=== PATIENT | male | born 1975 | race Caucasian/White ===

== ENCOUNTER 2016-12-05 13:39 | Inpatient (IN) ==
[2016-12-05 14:04] LABS: Basophils % 0.5 %; Eosinophils # 0.3 K/mcL (0.0-0.6); Eosinophils % 3.3 %; Hematocrit 40.5 % (37.5-50.1); Hemoglobin 13.7 g/dL (12.9-16.9); Immature Granulocytes % 0.4 % (0-4); Immature Platelets 6.6 % (1.1-6.1); Lymphocytes # 1.7 K/mcL (0.6-4.6); Lymphocytes % 21.9 %; Mean Corpuscular HGB Conc 33.8 g/dL (31.6-35.5); Mean Corpuscular Hemoglobin 28.4 pg (28.0-33.3); Mean Corpuscular Volume 83.9 fL (83.0-100.0); Mean Platelet Volume 10.6 fL (9.4-12.4); Monocytes # 0.4 K/mcL (0.0-1.3); Neutrophils # 5.2 K/mcL (1.6-8.9); Platelet Count 203 K/mcL (140-400); Red Blood Count 4.83 M/mcL (4.19-5.50); Red Cell Distribution Width 14.7 % (11.5-14.5); Segmented Neutrophils % 68.9 %
[2016-12-05 14:19] LABS: BUN/Creatinine Ratio 8 (6-26); Blood Urea Nitrogen 9 mg/dL (8-26); Calcium 10.1 mg/dL (8.6-10.8); Carbon Dioxide 25 mEq/L (19-29); Chloride 106 mEq/L (98-109); Glucose 98 mg/dL (70-99); Osmolality,Calculated 285 (280-300); Potassium 3.8 mEq/L (3.5-4.5); Sodium 138 mEq/L (136-145); eGFR For African Americans > 60 (> 60); eGFR For Non-African Americans > 60 (> 60)
[2016-12-05 14:20] LABS: Acetaminophen < 1.0 mcg/mL (10-30); Ethanol < 10 mg/dL (0-10); Salicylate < 5.0 mg/dL (15-30)
[2016-12-05 14:54] LABS: Bilirubin,Urine Negative (Negative); Blood,Urine Negative (Negative); Clarity,Urine Cloudy (Clear); Color,Urine Yellow (Yellow); Glucose,Urine (UA) Normal (Normal); Ketones,Urine Negative (Negative); Leukocyte Esterase,Urine Moderate (Negative); Nitrite,Urine Negative (Negative); PH,Urine 6.5 pH Units (5.0-8.0); Protein,Urine Negative (Neg-Trace); Specific Gravity,Urine 1.011 (1.010-1.025); Urobilinogen,Urine Normal (Normal)
[2016-12-05 14:57] LABS: Bacteria,Urine None Seen per hpf (None-Few); Hyaline Casts,Urine None Seen per lpf (None-Few); RBC,Urine 0-3 per hpf (0-3); Squamous Epithelial Cell,Urine Many per lpf (None-Few); WBC,Urine 15-30 per hpf (0-3)
[2016-12-05 15:01] LABS: Amphetamine Screen,Urine Negative ng/mL (Cutoff=1000); Barbiturate Screen,Urine Negative ng/mL (Cutoff=200); Benzodiazepines Screen,Urine Negative ng/mL (Cutoff=200); Cannabinoid Screen,Urine Negative ng/mL (Cutoff = 50); Cocaine Screen,Urine Negative ng/mL (Cutoff= 300); Opiate Screen,Urine Negative ng/mL (Cutoff=300); Phencyclidine Screen,Urine Negative ng/mL (Cutoff=25)
--- NOTE | 2016-12-05 15:04 | Emergency Department Note ---
Disposition Clinical Impression: Suicidal ideation Disposition: Admitted As Inpatient Condition: Good Referrals: NO,PCP [Primary Care Provider] - Forms: ED Satisfaction Letter Time of Disposition: 15:17 Psych HPI - General Chief Complaint: ED Psychiatric Symptoms Stated Complaint: SI/ Medical clearance. Source: patient, EMS Nursing Notes Reviewed: Yes Vital Signs Reviewed: Yes - History of Present Illness HPI Narrative: 41 year old male with HX of depression and previous suicidial attemptes and thoughts states that he has become increasinlgy more depressed and for the past month has had incresed suicidal thoughts and states that today he thought it was so severe that he may cause harm to himself. Mariana states he has no specific plans. Mariana has no other complaints at this time and states he is compliant with his medications. Mariana is sitting comfortably at bedside and has been admitetd to our facility in the past. - Related Data Home Medications Medication Instructions Recorded Confirmed Benztropine Mesylate 1 mg PO BID 05/22/16 05/22/16 Escitalopram Oxalate 30 mg PO DAILY 05/22/16 05/22/16 Haloperidol [Haldol] 5 mg PO HS 05/22/16 05/22/16 LORazepam [Ativan] 1 mg PO BID 05/22/16 05/22/16 [place] Carbonate 300 mg PO QAM 05/22/16 05/22/16 [place] Carbonate 600 mg PO HS 05/22/16 05/22/16 Melatonin 5 mg Tablet 5 mg PO HS PRN 05/22/16 05/22/16 Temazepam [Restoril] 30 mg PO HS 05/22/16 05/22/16 Previous Rx's Medication Instructions Recorded TraZODone 100 mg PO HS tablet 05/24/16 Allergies Allergy/AdvReac Type Severity Reaction Status Date / Time No Known Allergies Allergy Verified 11/14/16 20:13 Constitutional: Denies: fever, chills, weakness, weight change Eyes: Denies: eye pain, eye discharge, vision change ENT ED: Denies: ear pain, throat pain, dental pain, congestion, dysphagia Cardiovascular: Denies: chest pain, palpitations, dyspnea on exertion, syncope Respiratory: Denies: cough, dyspnea, wheezes, hemoptysis Gastrointestinal: Denies: abdominal pain, nausea, vomiting, diarrhea, constipation, hematemesis, melena, hematochezia Genitourinary: Denies: urgency, dysuria, frequency, hematuria Musculoskeletal: Denies: back pain, neck pain, arthralgia, myalgia Integumentary: Denies: rash, abrasion, lesions Neurological: Denies: headache, weakness, numbness, paresthesias Psychiatric: Reports: suicidal thoughts. Denies: anxiety, depression, homicidal thoughts, auditory hallucinations, visual hallucinations Past Medical History - Past Medical History Medical history: Reports: no medical history, other Surgical history: Reports: other Psychiatric history: Reports: anxiety, bipolar, depression, prior suicide attempt - Social History Smoking Status: Former smoker Smokeless Tobacco Status: No Alcohol use: Reports: none Drug use: Reports: none Physical Exam - General Limitations: no limitations General appearance: alert, in no apparent distress - Head Head exam: atraumatic, normocephalic, normal inspection - Eye Eye exam: Present: normal appearance, PERRL, EOMI - Expanded Eye Exam Pupils: Left: reactive - ENT ENT exam: normal exam, normal oropharynx, mucous membranes moist - Expanded ENT Exam External ear exam: Present: normal external inspection Mouth exam: Present: normal external inspection Teeth exam: Present: normal inspection Throat exam: Present: normal inspection - Neck Neck exam: Present: normal inspection, full ROM, trachea midline - Chest Chest inspection: Present: normal inspection, symmetric chest wall rise - Respiratory Respiratory exam: Present: normal lung sounds bilaterally - Cardiovascular Cardiovascular exam: Present: regular rate, normal rhythm, normal heart sounds - Abdominal Exam Abdominal exam: Present: soft, Non-Tender. Absent: tenderness, distention, guarding, rebound, rigidity - Extremities Exam Extremities exam: Present: normal inspection, full ROM. Absent: tenderness, pedal edema - Expanded Upper Extremity Exam Shoulder exam: Present: normal inspection, full ROM Arm exam: Present: normal inspection, full ROM Elbow exam: Present: normal inspection, full ROM Forearm/Wrist exam: Present: normal inspection, full ROM Hand exam: Present: normal inspection, full ROM Vascular exam: Normal: capillary refill, radial pulse - Expanded Lower Extremity Exam Hip/Pelvis exam: Present: normal inspection, full ROM Upper leg exam: Present: normal inspection, full ROM Knee exam: Present: normal inspection, full ROM Lower leg exam: Present: normal inspection, full ROM Ankle exam: Present: normal inspection, full ROM Foot/toe exam: Present: normal inspection, full ROM Neurovascular/Tendon exam: Absent: motor deficit, sensory deficit, tendon deficit - Back Exam Back exam: Present: normal inspection, full ROM. Absent: tenderness - Neurological Exam Neurological exam: Present: alert, oriented X3 - Expanded Neurological Exam Patient oriented to: Present: person, place, time Speech: Present: fluid speech Cranial nerves: EOM function (II, III, IV, ): Normal, facial sensation (V): Normal, facial palsy (VII): Normal, gag reflex (IX): Normal, tongue deviation ( XII): Normal Cerebellar function: finger to nose: Normal Cerebellar function: normal gait Motor strength - LUE: 4/5 Motor strength - RUE: 4/5 Motor strength - LLE: 4/5 Motor strength - RLE: 4/5 Coma Scale Eye Opening: Spontaneous Coma Scale Motor Response: Obeys Commands Coma Scale Verbal Response: Oriented Coma Scale Total: 15 - Psychiatric Psychiatric exam: Present: depressed, flat affect, suicidal ideation - Skin Skin exam: Present: warm, dry, intact, normal color Course Course Narrative: we will do a medical clearance and then consult 1A and follow reccomendations per pyschiatry. - Reevaluation(s) Reevaluation #1: patient is medically cleared. 1A consulted. Time: 15:05 Reevaluation #2: 1A accepts patinet for admission. Time: 15:16 Vital Signs Temperature 98.5 F 12/05/16 13:41 Pulse Rate 85 12/05/16 13:41 Respiratory Rate 16 12/05/16 13:41 Blood Pressure 131/88 12/05/16 13:41 O2 Sat by Pulse Oximetry 97 12/05/16 13:41 Temperature 98.5 F 12/05/16 13:41 Pulse Rate 62 12/05/16 14:27 Respiratory Rate 16 12/05/16 13:41 Blood Pressure 131/75 12/05/16 14:27 O2 Sat by Pulse Oximetry 99 12/05/16 14:27 Oxygen Delivery Oxygen Delivery Room Air Psych - Lab Data Result diagrams: 12/05/16 13:52 12/05/16 13:52 Lab Results 12/05/16 12/05/16 12/05/16 Range/Units 13:52 13:52 14:30 WBC 7.5 (4.3-11.1) K/mcL RBC 4.83 (4.19-5.50) M/mcL Hgb 13.7 (12.9-16.9) g/dL Hct 40.5 (37.5-50.1) % MCV 83.9 (83.0-100.0) fL MCH 28.4 (28.0-33.3) pg MCHC 33.8 (31.6-35.5) g/dL RDW 14.7 H (11.5-14.5) % Plt Count 203 (140-400) K/mcL MPV 10.6 (9.4-12.4) fL Immature Gran % 0.4 (0-4) % Seg Neutrophils % 68.9 % Lymphocytes % 21.9 % Monocytes % 5.0 % Eosinophils % 3.3 % Basophils % 0.5 % Neutrophils # 5.2 (1.6-8.9) K/mcL Lymphocytes # 1.7 (0.6-4.6) K/mcL Monocytes # 0.4 (0.0-1.3) K/mcL Eosinophils # 0.3 (0.0-0.6) K/mcL Basophils # 0.0 (0.0-0.2) K/mcL Immature Plt Fraction 6.6 H (1.1-6.1) % Sodium 138 (136-145) mEq/L Potassium 3.8 (3.5-4.5) mEq/L Chloride 106 (98-109) mEq/L Carbon Dioxide 25 (19-29) mEq/L BUN 9 (8-26) mg/dL Creatinine 1.14 (0.72-1.25) mg/dL Est GFR ( Amer) > 60 (> 60) Est GFR (Non-Af Amer) > 60 (> 60) BUN/Creatinine Ratio 8 (6-26) Glucose 98 (70-99) mg/dL Calculated Osmolality 285 (280-300) Calcium 10.1 (8.6-10.8) mg/dL Urine Color Yellow (Yellow) Urine Clarity Cloudy A (Clear) Urine pH 6.5 (5.0-8.0) pH Units Ur Specific [place] 1.011 (1.010-1.025) Urine Protein Negative (Neg-Trace) mg/dL Urine Glucose (UA) Normal (Normal) mg/dL Urine Ketones Negative (Negative) mg/dL Urine Blood Negative (Negative) Urine Nitrite Negative (Negative) Urine Bilirubin Negative (Negative) Urine Urobilinogen Normal (Normal) mg/dL Ur Leukocyte Esterase Moderate H (Negative) Urine Microscopic RBC 0-3 (0-3) per hpf Urine Microscopic WBC 15-30 H (0-3) per hpf Ur Squamous Epith Cells Many H (None-Few) per lpf Urine Bacteria None Seen (None-Few) per hpf Hyaline Casts None Seen (None-Few) per lpf Salicylates < 5.0 L (15-30) mg/dL Urine Opiates Screen (Tjhbsf=306) ng/mL Acetaminophen < 1.0 L (10-30) mcg/mL Ur Barbiturates Screen (Pnxvmh=986) ng/mL Ur Phencyclidine Scrn (Cutoff=25) ng/mL Ur Amphetamines Screen (Jnftxt=6823) ng/mL U Benzodiazepines Scrn (Gqobny=485) ng/mL Urine Cocaine Screen (Cutoff= 300) ng/mL U Marijuana (THC) Screen (Cutoff = 50) ng/mL Ethyl Alcohol < 10 (0-10) mg/dL 12/05/16 Range/Units 14:30 WBC (4.3-11.1) K/mcL RBC (4.19-5.50) M/mcL Hgb (12.9-16.9) g/dL Hct (37.5-50.1) % MCV (83.0-100.0) fL MCH (28.0-33.3) pg MCHC (31.6-35.5) g/dL RDW (11.5-14.5) % Plt Count (140-400) K/mcL MPV (9.4-12.4) fL Immature Gran % (0-4) % Seg Neutrophils % % Lymphocytes % % Monocytes % % Eosinophils % % Basophils % % Neutrophils # (1.6-8.9) K/mcL Lymphocytes # (0.6-4.6) K/mcL Monocytes # (0.0-1.3) K/mcL Eosinophils # (0.0-0.6) K/mcL Basophils # (0.0-0.2) K/mcL Immature Plt Fraction (1.1-6.1) % Sodium (136-145) mEq/L Potassium (3.5-4.5) mEq/L Chloride (98-109) mEq/L Carbon Dioxide (19-29) mEq/L BUN (8-26) mg/dL Creatinine (0.72-1.25) mg/dL Est GFR ( Amer) (> 60) Est GFR (Non-Af Amer) (> 60) BUN/Creatinine Ratio (6-26) Glucose (70-99) mg/dL Calculated Osmolality (280-300) Calcium (8.6-10.8) mg/dL Urine Color (Yellow) Urine Clarity (Clear) Urine pH (5.0-8.0) pH Units Ur Specific [place] (1.010-1.025) Urine Protein (Neg-Trace) mg/dL Urine Glucose (UA) (Normal) mg/dL Urine Ketones (Negative) mg/dL Urine Blood (Negative) Urine Nitrite (Negative) Urine Bilirubin (Negative) Urine Urobilinogen (Normal) mg/dL Ur Leukocyte Esterase (Negative) Urine Microscopic RBC (0-3) per hpf Urine Microscopic WBC (0-3) per hpf Ur Squamous Epith Cells (None-Few) per lpf Urine Bacteria (None-Few) per hpf Hyaline Casts (None-Few) per lpf Salicylates (15-30) mg/dL Urine Opiates Screen Negative (Qflbzy=054) ng/mL Acetaminophen (10-30) mcg/mL Ur Barbiturates Screen Negative (Joaizm=182) ng/mL Ur Phencyclidine Scrn Negative (Cutoff=25) ng/mL Ur Amphetamines Screen Negative (Wwsiha=8632) ng/mL U Benzodiazepines Scrn Negative (Xntytm=326) ng/mL Urine Cocaine Screen Negative (Cutoff= 300) ng/mL U Marijuana (THC) Screen Negative (Cutoff = 50) ng/mL Ethyl Alcohol (0-10) mg/dL Psychiatric Medical Clearance - Medical Clearance Checklist Medical History: No Social History Section defined Current Vitals: Last Vital Signs Temp 98.5 F 12/05/16 13:41 Pulse 62 12/05/16 14:27 Resp 16 12/05/16 13:41 BP 131/75 12/05/16 14:27 Pulse Ox 99 12/05/16 14:27 Psychiatric Lab Panel: Drug Levels and Toxicity 12/05/16 12/05/16 13:52 14:30 Urine Opiates Screen Negative Acetaminophen < 1.0 L Ur Barbiturates Screen Negative Ur Phencyclidine Scrn Negative Ur Amphetamines Screen Negative U Benzodiazepines Scrn Negative Urine Cocaine Screen Negative U Marijuana (THC) Screen Negative Ethyl Alcohol < 10 Abnormal Labs: Abnormal lab results RDW 14.7 % (11.5-14.5) H 12/05/16 13:52 Immature Plt Fraction 6.6 % (1.1-6.1) H 12/05/16 13:52 Urine Clarity Cloudy (Clear) A 12/05/16 14:30 Ur Leukocyte Esterase Moderate (Negative) H 12/05/16 14:30 Urine Microscopic WBC 15-30 per hpf (0-3) H 12/05/16 14:30 Ur Squamous Epith Cells Many per lpf (None-Few) H 12/05/16 14:30 Salicylates < 5.0 mg/dL (15-30) L 12/05/16 13:52 Acetaminophen < 1.0 mcg/mL (10-30) L 12/05/16 13:52 Statement of Medical Clearance: I have evaluated the patient, reviewed diagnostic information, and certify that the patient's medical condition is sufficiently stable that transfer to the psychiatric unit does not pose a significant risk of deterioration.
--- NOTE | 2016-12-05 15:08 | Emergency Department Note ---
Disposition Clinical Impression: Suicidal ideation Disposition: Admitted As Inpatient Condition: Good General Adult HPI - General Chief complaint: ED Psychiatric Symptoms Stated complaint: SI/ Medical clearance. Source: patient, EMS Limitations: no limitations - History of Present Illness Pain Scale: 0 - Related Data Home Medications Medication Instructions Recorded Confirmed Benztropine Mesylate 1 mg PO BID 05/22/16 12/05/16 Haloperidol [Haldol] 5 mg PO HS 05/22/16 05/22/16 LORazepam [Ativan] 1 mg PO BID 05/22/16 12/05/16 [place] Carbonate 300 mg PO QAM #0 05/22/16 12/05/16 [place] Carbonate 600 mg PO HS #0 05/22/16 12/05/16 Temazepam [Restoril] 30 mg PO HS 05/22/16 12/05/16 Allopurinol [Zyloprim] 300 mg PO DAILY 12/05/16 12/05/16 Quetiapine Fumarate [Seroquel] 400 mg PO HS 12/05/16 12/05/16 Rizatriptan Benzoate [[employer]] 10 mg PO AD PRN MDD 20 mg 12/05/16 12/05/16 Trazodone HCl 200 mg PO HS 12/05/16 12/05/16 Allergies Allergy/AdvReac Type Severity Reaction Status Date / Time No Known Allergies Allergy Verified 11/14/16 20:13 Past Medical History - Past Medical History Medical history: Reports: no medical history, other Surgical history: Reports: other Psychiatric history: Reports: anxiety, bipolar, depression, prior suicide attempt - Social History Smoking Status: Former smoker Smokeless Tobacco Status: No Alcohol use: Reports: none Drug use: Reports: none Physical Exam - General Limitations: no limitations General appearance: alert, in no apparent distress Course - Reevaluation(s) Reevaluation #1: I saw the patient with the resident, Dr. Burton. Patient presents with depression and suicidal ideations. He is calm and cooperative here in the department. He has no medical complaints. My examination is unremarkable. Labs and urine are already back and they are fine. He is medically cleared. We await psychiatry to evaluate the patient. Disposition will be based on psychiatry recommendations and reevaluation of the patient. Time: 15:08 Vital Signs Temperature 98.5 F 12/05/16 13:41 Pulse Rate 85 12/05/16 13:41 Respiratory Rate 16 12/05/16 13:41 Blood Pressure 131/88 12/05/16 13:41 O2 Sat by Pulse Oximetry 97 12/05/16 13:41 Temperature 98.5 F 12/05/16 13:41 Pulse Rate 62 12/05/16 14:27 Respiratory Rate 0 12/05/16 15:38 Blood Pressure 0/0 12/05/16 15:38 O2 Sat by Pulse Oximetry 99 12/05/16 14:27 Oxygen Delivery Oxygen Delivery Room Air Medical Decision Making - Lab Data Result diagrams: 12/05/16 13:52 12/05/16 13:52 Lab Results 12/05/16 12/05/16 12/05/16 Range/Units 13:52 13:52 14:30 WBC 7.5 (4.3-11.1) K/mcL RBC 4.83 (4.19-5.50) M/mcL Hgb 13.7 (12.9-16.9) g/dL Hct 40.5 (37.5-50.1) % MCV 83.9 (83.0-100.0) fL MCH 28.4 (28.0-33.3) pg MCHC 33.8 (31.6-35.5) g/dL RDW 14.7 H (11.5-14.5) % Plt Count 203 (140-400) K/mcL MPV 10.6 (9.4-12.4) fL Immature Gran % 0.4 (0-4) % Seg Neutrophils % 68.9 % Lymphocytes % 21.9 % Monocytes % 5.0 % Eosinophils % 3.3 % Basophils % 0.5 % Neutrophils # 5.2 (1.6-8.9) K/mcL Lymphocytes # 1.7 (0.6-4.6) K/mcL Monocytes # 0.4 (0.0-1.3) K/mcL Eosinophils # 0.3 (0.0-0.6) K/mcL Basophils # 0.0 (0.0-0.2) K/mcL Immature Plt Fraction 6.6 H (1.1-6.1) % Sodium 138 (136-145) mEq/L Potassium 3.8 (3.5-4.5) mEq/L Chloride 106 (98-109) mEq/L Carbon Dioxide 25 (19-29) mEq/L BUN 9 (8-26) mg/dL Creatinine 1.14 (0.72-1.25) mg/dL Est GFR ( Amer) > 60 (> 60) Est GFR (Non-Af Amer) > 60 (> 60) BUN/Creatinine Ratio 8 (6-26) Glucose 98 (70-99) mg/dL Calculated Osmolality 285 (280-300) Calcium 10.1 (8.6-10.8) mg/dL Urine Color Yellow (Yellow) Urine Clarity Cloudy A (Clear) Urine pH 6.5 (5.0-8.0) pH Units Ur Specific [place] 1.011 (1.010-1.025) Urine Protein Negative (Neg-Trace) mg/dL Urine Glucose (UA) Normal (Normal) mg/dL Urine Ketones Negative (Negative) mg/dL Urine Blood Negative (Negative) Urine Nitrite Negative (Negative) Urine Bilirubin Negative (Negative) Urine Urobilinogen Normal (Normal) mg/dL Ur Leukocyte Esterase Moderate H (Negative) Urine Microscopic RBC 0-3 (0-3) per hpf Urine Microscopic WBC 15-30 H (0-3) per hpf Ur Squamous Epith Cells Many H (None-Few) per lpf Urine Bacteria None Seen (None-Few) per hpf Hyaline Casts None Seen (None-Few) per lpf Salicylates < 5.0 L (15-30) mg/dL Urine Opiates Screen (Goyesn=242) ng/mL Acetaminophen < 1.0 L (10-30) mcg/mL Ur Barbiturates Screen (Xfvfpp=887) ng/mL Ur Phencyclidine Scrn (Cutoff=25) ng/mL Ur Amphetamines Screen (Iderxp=1356) ng/mL U Benzodiazepines Scrn (Wakepk=596) ng/mL Urine Cocaine Screen (Cutoff= 300) ng/mL U Marijuana (THC) Screen (Cutoff = 50) ng/mL Ethyl Alcohol < 10 (0-10) mg/dL 12/05/16 Range/Units 14:30 WBC (4.3-11.1) K/mcL RBC (4.19-5.50) M/mcL Hgb (12.9-16.9) g/dL Hct (37.5-50.1) % MCV (83.0-100.0) fL MCH (28.0-33.3) pg MCHC (31.6-35.5) g/dL RDW (11.5-14.5) % Plt Count (140-400) K/mcL MPV (9.4-12.4) fL Immature Gran % (0-4) % Seg Neutrophils % % Lymphocytes % % Monocytes % % Eosinophils % % Basophils % % Neutrophils # (1.6-8.9) K/mcL Lymphocytes # (0.6-4.6) K/mcL Monocytes # (0.0-1.3) K/mcL Eosinophils # (0.0-0.6) K/mcL Basophils # (0.0-0.2) K/mcL Immature Plt Fraction (1.1-6.1) % Sodium (136-145) mEq/L Potassium (3.5-4.5) mEq/L Chloride (98-109) mEq/L Carbon Dioxide (19-29) mEq/L BUN (8-26) mg/dL Creatinine (0.72-1.25) mg/dL Est GFR ( Amer) (> 60) Est GFR (Non-Af Amer) (> 60) BUN/Creatinine Ratio (6-26) Glucose (70-99) mg/dL Calculated Osmolality (280-300) Calcium (8.6-10.8) mg/dL Urine Color (Yellow) Urine Clarity (Clear) Urine pH (5.0-8.0) pH Units Ur Specific [place] (1.010-1.025) Urine Protein (Neg-Trace) mg/dL Urine Glucose (UA) (Normal) mg/dL Urine Ketones (Negative) mg/dL Urine Blood (Negative) Urine Nitrite (Negative) Urine Bilirubin (Negative) Urine Urobilinogen (Normal) mg/dL Ur Leukocyte Esterase (Negative) Urine Microscopic RBC (0-3) per hpf Urine Microscopic WBC (0-3) per hpf Ur Squamous Epith Cells (None-Few) per lpf Urine Bacteria (None-Few) per hpf Hyaline Casts (None-Few) per lpf Salicylates (15-30) mg/dL Urine Opiates Screen Negative (Ewcrsz=391) ng/mL Acetaminophen (10-30) mcg/mL Ur Barbiturates Screen Negative (Aefyla=390) ng/mL Ur Phencyclidine Scrn Negative (Cutoff=25) ng/mL Ur Amphetamines Screen Negative (Xnogre=8874) ng/mL U Benzodiazepines Scrn Negative (Bwbqwz=520) ng/mL Urine Cocaine Screen Negative (Cutoff= 300) ng/mL U Marijuana (THC) Screen Negative (Cutoff = 50) ng/mL Ethyl Alcohol (0-10) mg/dL Attestation Statement - Attestation Attestation: I, Dr. Vanegas, examined this patient [id number] and my medical decision- making was reviewed with Dr. Burton, Resident Physician. I agree with the documented findings, disposition and treatment plan as described except to the extent set forth below. Please see my progress notes for details.
[2016-12-05] MEDS ORDERED: hydrOXYzine pamoate 25 MG CAPSULE PO PRN (15:57)
[2016-12-05] MEDS ORDERED: *HR* LORazepam 1 MG TABLET PO PRN (15:57)
[2016-12-05] MEDS ORDERED: *HR* LORazepam 2 MG/ML VIAL IM PRN (15:57)
[2016-12-05] MEDS ORDERED: MOM Conc 10 ML UD.LIQ PO PRN (15:57)
[2016-12-05] MEDS ORDERED: Acetaminophen 325 MG TABLET PO PRN (15:57)
[2016-12-05] MEDS ORDERED: Mag Hydrox/Al Hydrox/Simeth 30 ML UDC PO PRN (15:57)
[2016-12-05] MEDS ORDERED: Haloperidol Lactate 5 MG/ML VIAL IM PRN (15:57)
[2016-12-05] MEDS: Lithium Carbonate 300 MG CAPSULE PO SCH (21:15)
[2016-12-05] MEDS: *HR* LORazepam 1 MG TABLET PO SCH (21:15)
[2016-12-05] MEDS: traZODone 50 MG TABLET PO SCH (21:16)
[2016-12-05] MEDS: traZODone 50 MG TABLET PO PRN (23:25)
[2016-12-06] MEDS: Lithium Carbonate 300 MG CAPSULE PO SCH ×2 (09:09→21:51)
[2016-12-06] MEDS: *HR* LORazepam 1 MG TABLET PO SCH ×2 (09:10→21:48)
--- NOTE | 2016-12-06 10:21 | Psychiatry History & Physical ---
Date of Encounter: 12/06/16 Time of Encounter: 10:17 History of Present Illness Patient Stated Chief Complaint: Suicidal ideation Medicare Admission Attestation: For traditional Medicare patients the provided hospital inpatient services are reasonable and necessary and in the case of services not specified as inpatient -only under 42 CFR 419.22 (n), that they are appropriately provided as inpatient services in accordance 42 CFR 412.3. For [facility] the patient may reasonably be expected to be discharged or transferred to a hospital within 96 hours after admission to the Critical [facility]. Admitted From: Emergency Dept History of Present Illness: Mr. Larsen is a 41 year old male referred for admission from Dr. Persaud's office to evaluate depression and suicidal ideation. Patient was seen by his counselor and expressed depression and hopelessness and suicidal ideation in the therapist recommended to Dr. Persaud to admit the patient. Patient has a history of bipolar disorder and an anxiety and has been treated with multiple psychiatric medication as per records he confirmed that he was taking his medication and has not missed any. Patient was stressed out by multiple factors including unemployment and financial issues and impending divorce and his has been insisting on getting a divorce. Patient has been unemployed for several years due to his mental illness and he denies any use of drugs or alcohol he denies smoking and he uses some caffeine. Past Med Surg Social Fam HX - Past Medical History Medical history: no medical history, other - Past Psychiatric History Psychiatric history: Reports: anxiety, bipolar, prior suicide attempt, previous psychiatric hospitalization Past psychiatric history details: Most recent hospitalization was in May 2016 for suicidal ideation - Past Surgical History Surgical History: other - Social History Smoking Status: Former smoker Smokeless Tobacco Status: No Alcohol use: none Drug use: none Medications & Allergies Benztropine Mesylate 1 mg PO BID 05/22/16 [History] Haloperidol [Haldol] 5 mg PO HS 05/22/16 [History] LORazepam [Ativan] 1 mg PO BID 05/22/16 [History] [place] Carbonate 300 mg PO QAM #0 05/22/16 [History] [place] Carbonate 600 mg PO HS #0 05/22/16 [History] Temazepam [Restoril] 30 mg PO HS 05/22/16 [History] Allopurinol [Zyloprim] 300 mg PO DAILY 12/05/16 [History] Quetiapine Fumarate [Seroquel] 400 mg PO HS 12/05/16 [History] Rizatriptan Benzoate [Maxalt Manager Business Information] 10 mg PO AD PRN MDD 20 mg 12/05/16 [History] Trazodone HCl 200 mg PO HS 12/05/16 [History] Allergies No Known Allergies Allergy (Verified 11/14/16 20:13) Review of Systems Psychiatric: Reports: depression, anxiety, suicidal ideation, hopelessness Mental Status Exam Patient orientation: Yes Person, Yes Time, Yes Place Level of alertness: Alert Patient appearance: Appropriate, Unkempt, Disheveled, Obese Behavior: calm, cooperative, guarded Psychomotor activity: Slowed Eye contact: Minimal Contact Mood description: Depressed, Anxious, Labile Affect description: congruent with mood, blunted, flat Speech pattern: Normal rate, Normal rhythm, Normal tone, Limited, Impoverished Speech volume: Normal Thought process: Linear, Goal Oriented Thought content: Yes Suicidal ideation, No Homicidal ideation, No Overt delusions Perceptual disturbances: No Auditory hallucinations, No Visual hallucinations Attention span: Capable of Focused Attention Memory description: Grossly Intact Patient reliability: Questionable Historian Intelligence estimate: Average Judgment: Limited Insight: Partial Results - Vital Signs Vital signs: Temp Pulse Resp BP Pulse Ox 98.2 F 84 16 121/83 99 12/05/16 21:00 12/05/16 21:00 12/05/16 21:00 12/05/16 21:00 12/05/16 14:27 - Labs Labs: Laboratory Last Values WBC 7.5 K/mcL (4.3-11.1) 12/05/16 13:52 RBC 4.83 M/mcL (4.19-5.50) 12/05/16 13:52 Hgb 13.7 g/dL (12.9-16.9) 12/05/16 13:52 Hct 40.5 % (37.5-50.1) 12/05/16 13:52 MCV 83.9 fL (83.0-100.0) 12/05/16 13:52 MCH 28.4 pg (28.0-33.3) 12/05/16 13:52 MCHC 33.8 g/dL (31.6-35.5) 12/05/16 13:52 RDW 14.7 % (11.5-14.5) H 12/05/16 13:52 Plt Count 203 K/mcL (140-400) 12/05/16 13:52 MPV 10.6 fL (9.4-12.4) 12/05/16 13:52 Immature Gran % 0.4 % (0-4) 12/05/16 13:52 Seg Neutrophils % 68.9 % 12/05/16 13:52 Lymphocytes % 21.9 % 12/05/16 13:52 Monocytes % 5.0 % 12/05/16 13:52 Eosinophils % 3.3 % 12/05/16 13:52 Basophils % 0.5 % 12/05/16 13:52 Neutrophils # 5.2 K/mcL (1.6-8.9) 12/05/16 13:52 Lymphocytes # 1.7 K/mcL (0.6-4.6) 12/05/16 13:52 Monocytes # 0.4 K/mcL (0.0-1.3) 12/05/16 13:52 Eosinophils # 0.3 K/mcL (0.0-0.6) 12/05/16 13:52 Basophils # 0.0 K/mcL (0.0-0.2) 12/05/16 13:52 Immature Plt Fraction 6.6 % (1.1-6.1) H 12/05/16 13:52 Sodium 138 mEq/L (136-145) 12/05/16 13:52 Potassium 3.8 mEq/L (3.5-4.5) 12/05/16 13:52 Chloride 106 mEq/L (98-109) 12/05/16 13:52 Carbon Dioxide 25 mEq/L (19-29) 12/05/16 13:52 BUN 9 mg/dL (8-26) 12/05/16 13:52 Creatinine 1.14 mg/dL (0.72-1.25) 12/05/16 13:52 Est GFR ( Amer) > 60 (> 60) 12/05/16 13:52 Est GFR (Non-Af Amer) > 60 (> 60) 12/05/16 13:52 BUN/Creatinine Ratio 8 (6-26) 12/05/16 13:52 Glucose 98 mg/dL (70-99) 12/05/16 13:52 Calculated Osmolality 285 (280-300) 12/05/16 13:52 Calcium 10.1 mg/dL (8.6-10.8) 12/05/16 13:52 Urine Color Yellow (Yellow) 12/05/16 14:30 Urine Clarity Cloudy (Clear) A 12/05/16 14:30 Urine pH 6.5 pH Units (5.0-8.0) 12/05/16 14:30 Ur Specific [place] 1.011 (1.010-1.025) 12/05/16 14:30 Urine Protein Negative mg/dL (Neg-Trace) 12/05/16 14:30 Urine Glucose (UA) Normal mg/dL (Normal) 12/05/16 14:30 Urine Ketones Negative mg/dL (Negative) 12/05/16 14:30 Urine Blood Negative (Negative) 12/05/16 14:30 Urine Nitrite Negative (Negative) 12/05/16 14:30 Urine Bilirubin Negative (Negative) 12/05/16 14:30 Urine Urobilinogen Normal mg/dL (Normal) 12/05/16 14:30 Ur Leukocyte Esterase Moderate (Negative) H 12/05/16 14:30 Urine Microscopic RBC 0-3 per hpf (0-3) 12/05/16 14:30 Urine Microscopic WBC 15-30 per hpf (0-3) H 12/05/16 14:30 Ur Squamous Epith Cells Many per lpf (None-Few) H 12/05/16 14:30 Urine Bacteria None Seen per hpf (None-Few) 12/05/16 14:30 Hyaline Casts None Seen per lpf (None-Few) 12/05/16 14:30 Salicylates < 5.0 mg/dL (15-30) L 12/05/16 13:52 Urine Opiates Screen Negative ng/mL (Oiqhfb=370) 12/05/16 14:30 Acetaminophen < 1.0 mcg/mL (10-30) L 12/05/16 13:52 Ur Barbiturates Screen Negative ng/mL (Giunpz=282) 12/05/16 14:30 Ur Phencyclidine Scrn Negative ng/mL (Cutoff=25) 12/05/16 14:30 Ur Amphetamines Screen Negative ng/mL (Ekpykv=3304) 12/05/16 14:30 U Benzodiazepines Scrn Negative ng/mL (Esvwha=752) 12/05/16 14:30 Urine Cocaine Screen Negative ng/mL (Cutoff= 300) 12/05/16 14:30 U Marijuana (THC) Screen Negative ng/mL (Cutoff = 50) 12/05/16 14:30 Ethyl Alcohol < 10 mg/dL (0-10) 12/05/16 13:52 Assessment and Plan (1) Bipolar disorder Current visit: Yes Status: Acute Plan: Admit inpatient for safety and stabilization, Close observation, Suicide Precautions per unit protocol, Encourage participation in unit milieu, Group Therapy, Monitor sleep, Monitor appetite Additional Plan: Will check lithium level and restart medication. Patient will be monitored. Risks, benefits, side effects, alternatives discussed w/pt: Yes Patient agreeable to treatment: Yes Qualifiers: Active/Remission status: currently active Current bipolar episode type: depressed Current episode severity: moderate Qualified Code(s): F31.32 - Bipolar disorder, current episode depressed, moderate
[2016-12-06] MEDS: traZODone 50 MG TABLET PO SCH (21:49)
[2016-12-06] MEDS: traZODone 50 MG TABLET PO PRN (23:46)
[2016-12-07] MEDS: *HR* LORazepam 1 MG TABLET PO SCH ×2 (08:42→20:46)
[2016-12-07] MEDS: Lithium Carbonate 300 MG CAPSULE PO SCH ×2 (08:43→20:46)
--- NOTE | 2016-12-07 13:52 | Psychiatry Progress Note ---
Date of Encounter: 12/07/16 Time of Encounter: 13:30 Subjective Interval history: Patient is seen for follow-up. Self-reports he is motivated to work on his life situation with his . He attends activities and compliant with medication. He reports improved sleep and denies suicidal ideation. His discharge plan are still pending and mental health social worker is trying to contact family and get information. I discussed with patient at length the need to have time management and activities to occupy his time I explained to him that this is important for his mental health's as well. He seemed to be receptive to those concepts. Review of Systems Psychiatric: Reports: depression, anxiety, suicidal ideation, hopelessness Objective: Exam Patient orientation: Yes Person, Yes Time, Yes Place Level of alertness: Alert Patient appearance: Appropriate, Disheveled, Obese Behavior: calm, cooperative, other ( passive) Psychomotor activity: Normal Eye contact: Maintains Eye Contact Mood description: Depressed Affect description: congruent with mood, flat Speech pattern: Normal rate, Normal rhythm, Normal tone Speech volume: Normal Thought process: Linear, Goal Oriented Thought content: No Suicidal ideation, No Homicidal ideation, No Overt delusions Perceptual disturbances: No Auditory hallucinations, No Visual hallucinations Judgment: Fair Insight: Partial Results - Vital Signs Vital Signs: Temp Pulse Resp BP Pulse Ox 97.8 F 94 16 119/77 99 12/07/16 08:27 12/07/16 08:27 12/07/16 08:27 12/07/16 08:27 12/05/16 14:27 Assessment and Plan (1) Bipolar disorder Current visit: Yes Status: Acute Plan: Continue hospitalization, Close observation, Suicide Precautions per unit protocol, Encourage participation in unit milieu, Group Therapy, Monitor sleep, Monitor appetite Risks, benefits, side effects, alternatives discussed w/pt: Yes Patient agreeable to treatment: Yes Qualifiers: Active/Remission status: currently active Current bipolar episode type: depressed Current episode severity: moderate Qualified Code(s): F31.32 - Bipolar disorder, current episode depressed, moderate Consult Discharge Plan - Plan Referrals: [facility] [Outside] - 12/12/16 3:00 pm (The above appointment is with Debo Bowen. You will also see Dr. Dawn on 01/11/2017 at 10:20am.)
[2016-12-07] MEDS: Acetaminophen/Aspirin/Caffeine TABLET PO PRN (18:08)
[2016-12-07] MEDS: traZODone 50 MG TABLET PO SCH (20:47)
[2016-12-08] MEDS: traZODone 50 MG TABLET PO PRN ×2 (01:50→22:25)
[2016-12-08] MEDS: *HR* LORazepam 1 MG TABLET PO SCH ×2 (09:41→20:40)
[2016-12-08] MEDS: Lithium Carbonate 300 MG CAPSULE PO SCH ×2 (09:41→20:40)
--- NOTE | 2016-12-08 16:47 | Psychiatry Progress Note ---
Date of Encounter: 12/08/16 Time of Encounter: 16:00 Subjective Interval history: Patient is here for follow-up. He denies any suicidal or homicidal ideation. He continues to be passive regarding his discharge plans and future plans. He participates in some groups and not motivated to do any activities. Review of Systems Psychiatric: Reports: depression, anxiety, suicidal ideation, hopelessness Objective: Exam Patient orientation: Yes Person, Yes Time, Yes Place Level of alertness: Alert Patient appearance: Appropriate, Unkempt Behavior: calm, cooperative Psychomotor activity: Normal Eye contact: Maintains Eye Contact Mood description: Euthymic/stable Affect description: congruent with mood, full range Speech pattern: Normal rate, Normal rhythm, Normal tone Speech volume: Normal Thought process: Linear, Goal Oriented Thought content: No Suicidal ideation, No Homicidal ideation, No Overt delusions Perceptual disturbances: No Auditory hallucinations, No Visual hallucinations Judgment: Fair Insight: Partial Results - Vital Signs Vital Signs: Temp Pulse Resp BP Pulse Ox 98 F 87 16 116/82 99 12/08/16 09:00 12/08/16 09:00 12/08/16 09:00 12/08/16 09:00 12/05/16 14:27 Assessment and Plan (1) Bipolar disorder Current visit: Yes Status: Acute Plan: Continue hospitalization, Close observation, Suicide Precautions per unit protocol, Encourage participation in unit milieu, Group Therapy, Monitor sleep, Monitor appetite Risks, benefits, side effects, alternatives discussed w/pt: Yes Patient agreeable to treatment: Yes Qualifiers: Active/Remission status: currently active Current bipolar episode type: depressed Current episode severity: moderate Qualified Code(s): F31.32 - Bipolar disorder, current episode depressed, moderate Consult Discharge Plan - Plan Referrals: [facility] [Outside] - 12/12/16 3:00 pm (The above appointment is with Debo Bowen. You will also see Dr. Dawn on 01/11/2017 at 10:20am.)
[2016-12-08] MEDS: traZODone 50 MG TABLET PO SCH (20:41)
[2016-12-08] MEDS: Acetaminophen/Aspirin/Caffeine TABLET PO PRN (22:25)
[2016-12-09] MEDS: Lithium Carbonate 300 MG CAPSULE PO SCH (08:52)
[2016-12-09] MEDS: *HR* LORazepam 1 MG TABLET PO SCH (08:52)
[2016-12-09 09:19] VITALS: BP 120/85
--- NOTE | 2016-12-09 12:01 | Discharge Summary ---
Date of Encounter: 12/09/16 Time of Encounter: 12:00 Diagnosis - Discharge Diagnosis (1) Bipolar disorder Status: Acute Qualifiers: Active/Remission status: currently active Current bipolar episode type: depressed Current episode severity: moderate Qualified Code(s): F31.32 - Bipolar disorder, current episode depressed, moderate Medications - Discharge Medications Benztropine Mesylate 1 mg PO BID 05/22/16 [History] Haloperidol [Haldol] 5 mg PO HS 05/22/16 [History] LORazepam [Ativan] 1 mg PO BID 05/22/16 [History] [place] Carbonate 300 mg PO QAM #0 05/22/16 [History] [place] Carbonate 600 mg PO HS #0 05/22/16 [History] Temazepam [Restoril] 30 mg PO HS 05/22/16 [History] Allopurinol [Zyloprim] 300 mg PO DAILY 12/05/16 [History] Quetiapine Fumarate [Seroquel] 400 mg PO HS 12/05/16 [History] Rizatriptan Benzoate [Maxalt W[employer] Care Specialist] 10 mg PO AD PRN MDD 20 mg 12/05/16 [History] Trazodone HCl 200 mg PO HS 12/05/16 [History] Escitalopram [Lexapro] 20 mg PO DAILY tablet 12/09/16 [Rx] Allergies No Known Allergies Allergy (Verified 11/14/16 20:13) Results Procedures and tests throughout hospitalization: Completed Lab Orders Category Date Time Status [place] Routine Lab 12/06/16 10:55 Completed Provider Date of admission: 12/05/16 15:25 Primary care physician: PCP NO Discharging clinician: Chan Hu Assessment and Plan - Patient/Caregiver Discharge Instructions Activity: resume usual activities as tolerated Diet: regular diet - Follow up Plan Follow up with: [facility] [Outside] - 12/12/16 3:00 pm (The above appointment is with Debo Bowen. You will also see Dr. Dawn on 01/11/2017 at 10:20am.) Functional capacity at discharge: independent ambulation Overall status at discharge: Stable Disposition: Home, Self-Care Hospital Course Hospital course: Mr. Larsen is a 41 year old male referred by Dr. Carr for evaluation of suicidal ideation and bipolar. For details of admission please see H&P On the units patient was evaluated, his medication where restarted. He reported insomnia at first Later on his sleep improved, he did become more active and interactive with other patients, he attended group activities, he was compliant with medication. He denies suicidal ideation. His discharge plans were discussed and completed by the neonatal social worker who contacted family members to assure safe discharge. Prior to discharge patient was medically stable and denied any suicidal ideation and ready for discharge, he was encouraged to increase his activity level and stay busy and he is motivated to make changes. - Time Spent with Patient Total time spent providing and/or coordinating discharge services: Less than 30 minutes Quality - Multiple Antipsychotics Patient discharged on 2 or more antipsychotic medications: No Procedures - Procedures Procedures: Medication Management, Crisis Stabilization, Supportive Therapy, Group Therapy, Psychoeducational Therapy Mental Status Exam - Mental Status Exam Patient orientation: Yes Person, Yes Time, Yes Place Level of alertness: Alert Patient appearance: Appropriate, Well Groomed, Obese Behavior: calm, cooperative Psychomotor activity: Normal Eye contact: Maintains Eye Contact Mood description: Euthymic/stable Affect description: congruent with mood, full range Speech pattern: Normal rate, Normal rhythm, Normal tone Speech Volume: Normal Thought process: Linear, Goal Oriented Thought Content: No Suicidal ideation, No Homicidal ideation, No Overt delusions Perceptual Disturbances: No Auditory hallucinations, No Visual hallucinations Judgment: Limited Insight: Partial
== END 2016-12-09 16:10 | disposition home or self-care (01) | DRG 885 ==
LOC: EMEROO 13:39 → 1ANU 15:25
PROVIDERS: ADMIT Psychiatry & Neurology Psychiatry; ATTEND Psychiatry & Neurology Psychiatry

== ENCOUNTER 2017-05-22 16:17 | Inpatient (IN) ==
[2017-05-22 16:44] LABS: Basophils # 0.1 K/mcL (0.0-0.2); Basophils % 0.7 %; Eosinophils # 0.2 K/mcL (0.0-0.6); Eosinophils % 2.2 %; Hematocrit 42.1 % (37.5-50.1); Hemoglobin 13.8 g/dL (12.9-16.9); Immature Granulocytes % 0.2 % (0-4); Lymphocytes # 1.6 K/mcL (0.6-4.6); Lymphocytes % 17.6 %; Mean Corpuscular HGB Conc 32.8 g/dL (31.6-35.5); Mean Corpuscular Volume 85.6 fL (83.0-100.0); Mean Platelet Volume 10.4 fL (9.4-12.4); Monocytes # 0.5 K/mcL (0.0-1.3); Monocytes % 5.2 %; Neutrophils # 6.6 K/mcL (1.6-8.9); Platelet Count 212 K/mcL (140-400); Red Blood Count 4.92 M/mcL (4.19-5.50); Red Cell Distribution Width 14.7 % (11.5-14.5); Segmented Neutrophils % 74.1 %
--- NOTE | 2017-05-22 16:53 | Emergency Department Note ---
Disposition Clinical Impression: Suicidal ideation Disposition: Admitted As Inpatient Condition: Good Time of Disposition: 18:41 Psych HPI - General Chief Complaint: ED Psychiatric Symptoms Stated Complaint: SI Time Seen by Provider: 05/22/17 16:35 Source: EMS Mode of arrival: ambulatory Limitations: no limitations Nursing Notes Reviewed: Yes Vital Signs Reviewed: Yes - History of Present Illness HPI Narrative: 41-year-old male presented to the emergency department with chief complaint of suicidal ideation. Patient has R did not be admitted to psychiatric hospital and is here for medical clearance. Patient states he has been feeling suicidal and had a specific plan of "blowing his head off". Patient denies homicidal ideation. He does disclose visual hallucinations of objects in the room but denies auditory hallucinations. Patient denies any intentional ingestion. He states he does take Excedrin as needed for headache but has not taken it today or yesterday. Patient has not hospitalized multiple times for psychiatric complaints in the past. Last hospitalization was in November. Patient denies any other medical complaints at this time. - Related Data Home Medications Medication Instructions Recorded Confirmed Benztropine Mesylate 1 mg PO BID 05/22/16 05/22/17 LORazepam [Ativan] 1 mg PO BID 05/22/16 05/22/17 [place] Carbonate 300 mg PO QAM #0 05/22/16 05/22/17 [place] Carbonate 600 mg PO HS #0 05/22/16 05/22/17 Temazepam [Restoril] 30 mg PO HS PRN 05/22/16 05/22/17 Allopurinol [Zyloprim] 300 mg PO DAILY 12/05/16 05/22/17 Quetiapine Fumarate [Seroquel] 800 mg PO HS 12/05/16 05/22/17 OLANZapine [Zyprexa] 10 mg PO HS 05/22/17 05/22/17 Rizatriptan Benzoate [Maxalt Single Ending Machine Operator] 10 mg PO Q4H PRN MDD 20 mg 05/22/17 05/22/17 Allergies Allergy/AdvReac Type Severity Reaction Status Date / Time olanzapine [From Zyprexa] Allergy Anaphylaxis Verified 05/23/17 14:54 All systems ED: reviewed and negative except as stated. Constitutional: Denies: fever, chills, weakness Eyes: Reports: as per HPI ENT ED: Reports: as per HPI Cardiovascular: Denies: chest pain, palpitations Respiratory: Denies: cough, dyspnea, wheezes Gastrointestinal: Denies: abdominal pain, nausea, vomiting Genitourinary: Reports: as per HPI Musculoskeletal: Reports: as per HPI Integumentary: Reports: as per HPI Neurological: Denies: headache, weakness, numbness, paresthesias Psychiatric: Reports: anxiety, depression, suicidal thoughts, visual hallucinations. Denies: homicidal thoughts, auditory hallucinations Endocrine: Reports: as per HPI Hematological/Lymphatic: Reports: as per HPI Allergic/Immunologic: Reports: as per HPI Past Medical History - Past Medical History Attestation: Yes The following information was validated with the patient. Medical history: Reports: hypertension, other Surgical history: Reports: other Psychiatric history: Reports: anxiety, bipolar, prior suicide attempt, previous psychiatric hospitalization - Social History Smoking Status: Former smoker Smokeless Tobacco Status: No Alcohol use: Reports: none Drug use: Reports: none Physical Exam - General Limitations: no limitations General appearance: alert, in no apparent distress - Head Head exam: atraumatic, normocephalic, normal inspection - Eye Eye exam: Present: normal appearance. Absent: scleral icterus, conjunctival injection - Chest Chest inspection: Present: normal inspection, symmetric chest wall rise. Absent : tenderness, rash - Respiratory Respiratory exam: Present: normal lung sounds bilaterally. Absent: respiratory distress, wheezes - Cardiovascular Cardiovascular exam: Present: regular rate, normal rhythm, normal heart sounds - Abdominal Exam Abdominal exam: Present: soft, Non-Tender. Absent: distention, guarding, rebound - Extremities Exam Extremities exam: Present: normal inspection, full ROM - Neurological Exam Neurological exam: Present: alert, oriented X3 - Psychiatric Psychiatric exam: Present: depressed, flat affect, suicidal ideation - Skin Skin exam: Present: warm, intact Course Course Narrative: 41-year-old male presenting to emergency department for suicidal ideation and plan. He is 40. Admitted to the psychiatric [facility]. We will perform basic psychiatric blood work and urine analysis. Patient is medically clear at this time. He has no complaints or concerns at this time. Vital Signs Temperature 97.8 F 05/22/17 16:16 Pulse Rate 86 05/22/17 16:16 Respiratory Rate 18 05/22/17 16:16 Blood Pressure 139/85 05/22/17 16:16 O2 Sat by Pulse Oximetry 99 05/22/17 16:16 Temperature 97.8 F 05/23/17 09:00 Pulse Rate 87 05/23/17 09:00 Respiratory Rate 16 05/23/17 09:00 Blood Pressure 119/84 05/23/17 09:00 O2 Sat by Pulse Oximetry 98 05/22/17 18:32 Oxygen Delivery Oxygen Delivery Room Air Psych - Lab Data Result diagrams: 05/22/17 16:39 05/22/17 16:39 Lab Results 05/22/17 05/22/17 05/22/17 Range/Units 16:39 16:39 17:52 WBC 8.9 (4.3-11.1) K/mcL RBC 4.92 (4.19-5.50) M/mcL Hgb 13.8 (12.9-16.9) g/dL Hct 42.1 (37.5-50.1) % MCV 85.6 (83.0-100.0) fL MCH 28.0 (28.0-33.3) pg MCHC 32.8 (31.6-35.5) g/dL RDW 14.7 H (11.5-14.5) % Plt Count 212 (140-400) K/mcL MPV 10.4 (9.4-12.4) fL Immature Gran % 0.2 (0-4) % Seg Neutrophils % 74.1 % Lymphocytes % 17.6 % Monocytes % 5.2 % Eosinophils % 2.2 % Basophils % 0.7 % Neutrophils # 6.6 (1.6-8.9) K/mcL Lymphocytes # 1.6 (0.6-4.6) K/mcL Monocytes # 0.5 (0.0-1.3) K/mcL Eosinophils # 0.2 (0.0-0.6) K/mcL Basophils # 0.1 (0.0-0.2) K/mcL Sodium 138 (136-145) mEq/L Potassium 3.8 (3.5-4.5) mEq/L Chloride 104 (98-109) mEq/L Carbon Dioxide 26 (19-29) mEq/L BUN 11 (8-26) mg/dL Creatinine 1.05 (0.72-1.25) mg/dL Est GFR ( Amer) > 60 (> 60) Est GFR (Non-Af Amer) > 60 (> 60) BUN/Creatinine Ratio 10 (6-26) Glucose 103 H (70-99) mg/dL Calculated Osmolality 286 (280-300) Calcium 9.7 (8.6-10.8) mg/dL Urine Color Yellow (Yellow) Urine Clarity Clear (Clear) Urine pH 7.0 (5.0-8.0) pH Units Ur Specific [place]cd[place] 1.006 L (1.010-1.025) Urine Protein Negative (Neg-Trace) mg/dL Urine Glucose (UA) Normal (Normal) mg/dL Urine Ketones Negative (Negative) mg/dL Urine Blood Negative (Negative) Urine Nitrite Negative (Negative) Urine Bilirubin Negative (Negative) Urine Urobilinogen Normal (Normal) mg/dL Ur Leukocyte Esterase Trace H (Negative) Urine Microscopic WBC 0-3 (0-3) per hpf Ur Squamous Epith Cells Few (None-Few) per lpf Urine Bacteria None Seen (None-Few) per hpf Hyaline Casts Test Not Performed Salicylates < 5.0 L (15-30) mg/dL Urine Opiates Screen (Tjviwp=133) ng/mL Acetaminophen 2.0 L (10-30) mcg/mL Ur Barbiturates Screen (Ojotgi=392) ng/mL Ur Phencyclidine Scrn (Cutoff=25) ng/mL Ur Amphetamines Screen (Suagxm=6164) ng/mL U Benzodiazepines Scrn (Zvnllg=855) ng/mL Urine Cocaine Screen (Cutoff= 300) ng/mL U Marijuana (THC) Screen (Cutoff = 50) ng/mL Ethyl Alcohol < 10 (0-10) mg/dL 05/22/17 Range/Units 17:52 WBC (4.3-11.1) K/mcL RBC (4.19-5.50) M/mcL Hgb (12.9-16.9) g/dL Hct (37.5-50.1) % MCV (83.0-100.0) fL MCH (28.0-33.3) pg MCHC (31.6-35.5) g/dL RDW (11.5-14.5) % Plt Count (140-400) K/mcL MPV (9.4-12.4) fL Immature Gran % (0-4) % Seg Neutrophils % % Lymphocytes % % Monocytes % % Eosinophils % % Basophils % % Neutrophils # (1.6-8.9) K/mcL Lymphocytes # (0.6-4.6) K/mcL Monocytes # (0.0-1.3) K/mcL Eosinophils # (0.0-0.6) K/mcL Basophils # (0.0-0.2) K/mcL Sodium (136-145) mEq/L Potassium (3.5-4.5) mEq/L Chloride (98-109) mEq/L Carbon Dioxide (19-29) mEq/L BUN (8-26) mg/dL Creatinine (0.72-1.25) mg/dL Est GFR ( Amer) (> 60) Est GFR (Non-Af Amer) (> 60) BUN/Creatinine Ratio (6-26) Glucose (70-99) mg/dL Calculated Osmolality (280-300) Calcium (8.6-10.8) mg/dL Urine Color (Yellow) Urine Clarity (Clear) Urine pH (5.0-8.0) pH Units Ur Specific Mcdade (1.010-1.025) Urine Protein (Neg-Trace) mg/dL Urine Glucose (UA) (Normal) mg/dL Urine Ketones (Negative) mg/dL Urine Blood (Negative) Urine Nitrite (Negative) Urine Bilirubin (Negative) Urine Urobilinogen (Normal) mg/dL Ur Leukocyte Esterase (Negative) Urine Microscopic WBC (0-3) per hpf Ur Squamous Epith Cells (None-Few) per lpf Urine Bacteria (None-Few) per hpf Hyaline Casts Salicylates (15-30) mg/dL Urine Opiates Screen Negative (Ydkxza=810) ng/mL Acetaminophen (10-30) mcg/mL Ur Barbiturates Screen Negative (Wasnbg=829) ng/mL Ur Phencyclidine Scrn Negative (Cutoff=25) ng/mL Ur Amphetamines Screen Negative (Rynecr=4239) ng/mL U Benzodiazepines Scrn Negative (Pfyyvz=166) ng/mL Urine Cocaine Screen Negative (Cutoff= 300) ng/mL U Marijuana (THC) Screen Negative (Cutoff = 50) ng/mL Ethyl Alcohol (0-10) mg/dL Psychiatric Medical Clearance - Medical Clearance Checklist Medical History: Depression (Acute) Suicidal ideation (Acute) Bipolar disorder (Acute) Anxiety (Acute) Difficulty sleeping (Inactive) Upper respiratory infection (Inactive) No Social History Section defined Current Vitals: Last Vital Signs Temp 97.8 F 05/23/17 09:00 Pulse 87 05/23/17 09:00 Resp 16 05/23/17 09:00 BP 119/84 05/23/17 09:00 Pulse Ox 98 05/22/17 18:32 Psychiatric Lab Panel: Drug Levels and Toxicity 05/22/17 17:52 Urine Opiates Screen Negative Ur Barbiturates Screen Negative Ur Phencyclidine Scrn Negative Ur Amphetamines Screen Negative U Benzodiazepines Scrn Negative Urine Cocaine Screen Negative U Marijuana (THC) Screen Negative Abnormal Labs: Abnormal lab results RDW 14.7 % (11.5-14.5) H 05/22/17 16:39 Glucose 103 mg/dL (70-99) H 05/22/17 16:39 Ur Specific [place] 1.006 (1.010-1.025) L 05/22/17 17:52 Ur Leukocyte Esterase Trace (Negative) H 05/22/17 17:52 Salicylates < 5.0 mg/dL (15-30) L 05/22/17 16:39 Acetaminophen 2.0 mcg/mL (10-30) L 05/22/17 16:39 Attestation Statement - Attestation Attestation: I, Byron Pan, examined this patient and my medical decision-making was reviewed with the RV REPAIRER/PA/Advanced Practice Nurse/Resident Physician. I agree with the documented findings, disposition and treatment plan as described except to the extent set forth below. 41-year-old male presents emergency Department with concerns of suicidal ideation. Patient is a direct admit to however he needs to be medically cleared in the emergency department. Patient had a planned to use a gun to shoot himself in the head. Patient denies attempts to hurt himself prior to arrival to the emergency department. Denies ingestion of drugs or medications. Patient feels comfortable to be admitted to the hospital.
[2017-05-22 16:58] LABS: BUN/Creatinine Ratio 10 (6-26); Blood Urea Nitrogen 11 mg/dL (8-26); Calcium 9.7 mg/dL (8.6-10.8); Carbon Dioxide 26 mEq/L (19-29); Chloride 104 mEq/L (98-109); Glucose 103 mg/dL (70-99); Osmolality,Calculated 286 (280-300); Potassium 3.8 mEq/L (3.5-4.5); Sodium 138 mEq/L (136-145); eGFR For African Americans > 60 (> 60); eGFR For Non-African Americans > 60 (> 60)
[2017-05-22 17:00] LABS: Ethanol < 10 mg/dL (0-10); Salicylate < 5.0 mg/dL (15-30)
[2017-05-22 18:00] LABS: Bilirubin,Urine Negative (Negative); Blood,Urine Negative (Negative); Clarity,Urine Clear (Clear); Color,Urine Yellow (Yellow); Glucose,Urine (UA) Normal (Normal); Ketones,Urine Negative (Negative); Leukocyte Esterase,Urine Trace (Negative); Nitrite,Urine Negative (Negative); Protein,Urine Negative (Neg-Trace); Specific Gravity,Urine 1.006 (1.010-1.025); Urobilinogen,Urine Normal (Normal)
[2017-05-22 18:05] LABS: Amphetamine Screen,Urine Negative ng/mL (Cutoff=1000); Barbiturate Screen,Urine Negative ng/mL (Cutoff=200); Benzodiazepines Screen,Urine Negative ng/mL (Cutoff=200); Cannabinoid Screen,Urine Negative ng/mL (Cutoff = 50); Cocaine Screen,Urine Negative ng/mL (Cutoff= 300); Opiate Screen,Urine Negative ng/mL (Cutoff=300); Phencyclidine Screen,Urine Negative ng/mL (Cutoff=25)
[2017-05-22 18:13] LABS: Bacteria,Urine None Seen per hpf (None-Few); Squamous Epithelial Cell,Urine Few per lpf (None-Few); WBC,Urine 0-3 per hpf (0-3)
[2017-05-22] MEDS ORDERED: MOM Conc 10 ML UD.LIQ PO PRN (19:59)
[2017-05-22] MEDS ORDERED: Haloperidol Lactate 5 MG/ML VIAL IM PRN (19:59)
[2017-05-22] MEDS ORDERED: traZODone 50 MG TABLET PO PRN (19:59)
[2017-05-22] MEDS ORDERED: *HR* LORazepam 2 MG/ML VIAL IM PRN (19:59)
[2017-05-22] MEDS ORDERED: *HR* LORazepam 1 MG TABLET PO PRN (19:59)
[2017-05-22] MEDS ORDERED: MAXALT MLT PO PRN (20:02)
[2017-05-22] MEDS ORDERED: OLANZapine 10 MG TAB.RAPDIS PO SCH (21:00)
[2017-05-22] MEDS: Lithium Carbonate 300 MG CAPSULE PO SCH (22:29)
[2017-05-22] MEDS: Temazepam 15 MG CAPSULE PO PRN (22:30)
[2017-05-22] MEDS: *HR* LORazepam 1 MG TABLET PO SCH (22:30)
[2017-05-22] MEDS: Acetaminophen 325 MG TABLET PO PRN (22:31)
[2017-05-22] MEDS: hydrOXYzine pamoate 25 MG CAPSULE PO PRN (22:31)
[2017-05-23] MEDS: *HR* LORazepam 1 MG TABLET PO SCH ×2 (09:31→20:48)
[2017-05-23] MEDS: Lithium Carbonate 300 MG CAPSULE PO SCH ×2 (09:31→20:48)
--- NOTE | 2017-05-23 12:35 | Psychiatry History & Physical ---
Date of Encounter: 05/23/17 Time of Encounter: 12:00 History of Present Illness Patient Stated Chief Complaint: i was suicidal Medicare Admission Attestation: For traditional Medicare patients the provided hospital inpatient services are reasonable and necessary and in the case of services not specified as inpatient -only under 42 CFR 419.22 (n), that they are appropriately provided as inpatient services in accordance 42 CFR 412.3. For Critical Access Hospital the patient may reasonably be expected to be discharged or transferred to a hospital within 96 hours after admission to the Critical Access Hospital. Admitted From: Emergency Dept Plans for Post Hospital Care: Home History of Present Illness: Mr. Larsen is a 41 year old male evaluated today. Patient has h/o Bipolar disorder , anxiety and insomnia, suicidal ideation and attempts. Patient came to psychiatrist appointment on 05/22/17 and made early appointment secondary to increasing depression and suicidal thoughts with plan to "blowing his head off" , he was sent to be admitted was in ED for medical clearance and then admitted to . At present states i was out of one medication and it made worse as my aunt was getting on me and yells at him for not working and using her address to get social security. He stated to Dr Dawn that he does not own gun but all he needs is hammer , a nail and bullet . He would superglue that nail to the hammer and hit the bullet which would cause explosion and kill him. He is at present still depressed, anxious and sleep not good , having suicidal thoughts and feeling hopeless, worthless, he also is reporting anxiety and mind racing, denies aud. hallucination but is having visual hallucination seeing a man but not his face , he is having paranoia and is guarded and withdrawn with minimal eye contact. He is on seroquel, trazodone, lithium, lorazepam, cogentin. Medically has h/o Hypertension but not on any meds, and h/o gout , denies any other medical history. denies any substance use. Past Med Surg Social Fam HX - Past Medical History Medical history: hypertension - Past Psychiatric History Psychiatric history: Reports: bipolar, depression, panic disorder, prior suicide attempt, previous psychiatric hospitalization Family psychiatric history: Yes (paternal cousin comitted suicide) Family History of Suicide: Completed - Past Surgical History Surgical History: other - Social History Smoking Status: Never smoker Smokeless Tobacco Status: No Alcohol use: none Drug use: none Occupational status: unemployed Current living situation: Home - Independent Activity Level: Independent ambulation Recent Out of Country Travel Within the Last 8 Weeks: No Exposure or Possible Exposure to Illness During Travel: No Medications & Allergies Benztropine Mesylate 1 mg PO BID 05/22/16 [History] LORazepam [Ativan] 1 mg PO BID 05/22/16 [History] [place] Carbonate 300 mg PO QAM #0 05/22/16 [History] [place] Carbonate 600 mg PO HS #0 05/22/16 [History] Temazepam [Restoril] 30 mg PO HS PRN 05/22/16 [History] Allopurinol [Zyloprim] 300 mg PO DAILY 12/05/16 [History] Quetiapine Fumarate [Seroquel] 800 mg PO HS 12/05/16 [History] OLANZapine [Zyprexa] 10 mg PO HS 05/22/17 [History] Rizatriptan Benzoate [Maxalt Environmental Planning Engineer] 10 mg PO Q4H PRN MDD 20 mg 05/22/17 [History] 3 Allergy/AdvReac Type Severity Reaction Status Date / Time No Known Allergies Allergy Verified 03/23/17 10:03 Review of Systems Constitutional: Denies: fever, chills, weakness, weight change Eyes: Denies: eye pain, vision change Ears, Nose, Throat: Denies: ear pain, throat pain, dental pain, hearing loss, congestion Cardiovascular: Denies: chest pain, palpitations, dyspnea on exertion Respiratory: Denies: cough, dyspnea, wheezes Gastrointestinal: Denies: abdominal pain, nausea, vomiting, diarrhea, constipation Genitourinary male: Denies: urgency, dysuria, frequency, genital lesions Genitourinary female: Denies: urgency, dysuria, frequency, abnormal menses, dyspareunia Musculoskeletal: Denies: joint swelling, joint pain Integumentary: Denies: rash, lesions, pruritus Neurological: Denies: headache, weakness, numbness, memory loss Psychiatric: Reports: depression, anxiety, suicidal ideation, change in appetite , auditory hallucinations, visual hallucinations, difficulty concentrating, hopelessness, irritability, mood swings, panic attacks Endocrine: Denies: fatigue, heat or cold intolerance Hematologic/Lymphatic: Denies: easy bruising, lymphadenopathy Allergic/Immunologic: Denies: urticaria, itchy eyes Mental Status Exam Patient orientation: Yes Person, Yes Time, Yes Place Level of alertness: Alert Patient appearance: Appropriate Behavior: cooperative, anxious, withdrawn Psychomotor activity: Normal Eye contact: Minimal Contact Mood description: Depressed, Anxious, Irritable Affect description: congruent with mood Speech pattern: Slowed Speech volume: Normal Thought process: Racing Thought content: Yes Suicidal ideation, Yes Preoccupation, Yes Paranoid delusion Perceptual disturbances: Yes Visual hallucinations Attention span: Unable to Sustain Attention Memory description: Grossly Intact Patient reliability: Reliable Historian Intelligence estimate: Average Judgment: Poor Insight: Partial Exam - HEENT Head exam IM: Present: atraumatic, normal inspection, normocephalic Eye exam IM: Present: normal appearance ENT exam IM: Present: normal exam - Neurological Neurological exam IM: Present: alert, CN II-XII intact, normal gait, oriented X3 - Skin Skin exam IM: Present: dry, warm Results - Vital Signs Vital signs: Temp Pulse Resp BP Pulse Ox 97.8 F 87 16 119/84 98 05/23/17 09:00 05/23/17 09:00 05/23/17 09:00 05/23/17 09:00 05/22/17 18:32 - Labs Labs: Laboratory Last Values WBC 8.9 K/mcL (4.3-11.1) 05/22/17 16:39 RBC 4.92 M/mcL (4.19-5.50) 05/22/17 16:39 Hgb 13.8 g/dL (12.9-16.9) 05/22/17 16:39 Hct 42.1 % (37.5-50.1) 05/22/17 16:39 MCV 85.6 fL (83.0-100.0) 05/22/17 16:39 MCH 28.0 pg (28.0-33.3) 05/22/17 16:39 MCHC 32.8 g/dL (31.6-35.5) 05/22/17 16:39 RDW 14.7 % (11.5-14.5) H 05/22/17 16:39 Plt Count 212 K/mcL (140-400) 05/22/17 16:39 MPV 10.4 fL (9.4-12.4) 05/22/17 16:39 Immature Gran % 0.2 % (0-4) 05/22/17 16:39 Seg Neutrophils % 74.1 % 05/22/17 16:39 Lymphocytes % 17.6 % 05/22/17 16:39 Monocytes % 5.2 % 05/22/17 16:39 Eosinophils % 2.2 % 05/22/17 16:39 Basophils % 0.7 % 05/22/17 16:39 Neutrophils # 6.6 K/mcL (1.6-8.9) 05/22/17 16:39 Lymphocytes # 1.6 K/mcL (0.6-4.6) 05/22/17 16:39 Monocytes # 0.5 K/mcL (0.0-1.3) 05/22/17 16:39 Eosinophils # 0.2 K/mcL (0.0-0.6) 05/22/17 16:39 Basophils # 0.1 K/mcL (0.0-0.2) 05/22/17 16:39 Sodium 138 mEq/L (136-145) 05/22/17 16:39 Potassium 3.8 mEq/L (3.5-4.5) 05/22/17 16:39 Chloride 104 mEq/L (98-109) 05/22/17 16:39 Carbon Dioxide 26 mEq/L (19-29) 05/22/17 16:39 BUN 11 mg/dL (8-26) 05/22/17 16:39 Creatinine 1.05 mg/dL (0.72-1.25) 05/22/17 16:39 Est GFR ( Amer) > 60 (> 60) 05/22/17 16:39 Est GFR (Non-Af Amer) > 60 (> 60) 05/22/17 16:39 BUN/Creatinine Ratio 10 (6-26) 05/22/17 16:39 Glucose 103 mg/dL (70-99) H 05/22/17 16:39 Calculated Osmolality 286 (280-300) 05/22/17 16:39 Calcium 9.7 mg/dL (8.6-10.8) 05/22/17 16:39 Urine Color Yellow (Yellow) 05/22/17 17:52 Urine Clarity Clear (Clear) 05/22/17 17:52 Urine pH 7.0 pH Units (5.0-8.0) 05/22/17 17:52 Ur Specific [place] 1.006 (1.010-1.025) L 05/22/17 17:52 Urine Protein Negative mg/dL (Neg-Trace) 05/22/17 17:52 Urine Glucose (UA) Normal mg/dL (Normal) 05/22/17 17:52 Urine Ketones Negative mg/dL (Negative) 05/22/17 17:52 Urine Blood Negative (Negative) 05/22/17 17:52 Urine Nitrite Negative (Negative) 05/22/17 17:52 Urine Bilirubin Negative (Negative) 05/22/17 17:52 Urine Urobilinogen Normal mg/dL (Normal) 05/22/17 17:52 Ur Leukocyte Esterase Trace (Negative) H 05/22/17 17:52 Urine Microscopic WBC 0-3 per hpf (0-3) 05/22/17 17:52 Ur Squamous Epith Cells Few per lpf (None-Few) 05/22/17 17:52 Urine Bacteria None Seen per hpf (None-Few) 05/22/17 17:52 Hyaline Casts Test Not Performed 05/22/17 17:52 Salicylates < 5.0 mg/dL (15-30) L 05/22/17 16:39 Urine Opiates Screen Negative ng/mL (Nvrppr=452) 05/22/17 17:52 Acetaminophen 2.0 mcg/mL (10-30) L 05/22/17 16:39 Ur Barbiturates Screen Negative ng/mL (Hlesje=365) 05/22/17 17:52 Ur Phencyclidine Scrn Negative ng/mL (Cutoff=25) 05/22/17 17:52 Ur Amphetamines Screen Negative ng/mL (Jhepys=4334) 05/22/17 17:52 U Benzodiazepines Scrn Negative ng/mL (Blcdrf=604) 05/22/17 17:52 Urine Cocaine Screen Negative ng/mL (Cutoff= 300) 05/22/17 17:52 U Marijuana (THC) Screen Negative ng/mL (Cutoff = 50) 05/22/17 17:52 Ethyl Alcohol < 10 mg/dL (0-10) 05/22/17 16:39 Assessment and Plan (1) Suicidal ideation Current visit: Yes Status: Acute Plan: Admit inpatient for safety and stabilization, Close observation, Suicide Precautions per unit protocol, Encourage participation in unit milieu, Group Therapy, Monitor sleep, Monitor appetite, Secure weapons, Family/Supportive other meeting Additional Plan: Inpatient stabilization, close monitoring , suicide precautions and start medication Risks, benefits, side effects, alternatives discussed w/pt: Yes Patient agreeable to treatment: Yes Plans for Post Hospital Care: Home Estimated Length of Stay (Days): 5 (2) Bipolar disorder Current visit: No Status: Acute Plan: Admit inpatient for safety and stabilization, Close observation, Suicide Precautions per unit protocol, Encourage participation in unit milieu, Group Therapy, Monitor sleep, Monitor appetite, Family/Supportive other meeting Additional Plan: Inpatient stabilization , get lithium level. Risks, benefits, side effects, alternatives discussed w/pt: Yes Patient agreeable to treatment: Yes Plans for Post Hospital Care: Home Estimated Length of Stay (Days): 5 Qualifiers: Active/Remission status: currently active Current bipolar episode type: depressed Current episode severity: severe Psychotic features: with psychotic features Qualified Code(s): F31.5 - Bipolar disorder, current episode depressed, severe, with psychotic features (3) Anxiety Current visit: No Status: Acute Plan: Admit inpatient for safety and stabilization, Close observation, Suicide Precautions per unit protocol, Encourage participation in unit milieu, Group Therapy, Monitor sleep Risks, benefits, side effects, alternatives discussed w /pt: Yes Patient agreeable to treatment: Yes Plans for Post Hospital Care: Home
[2017-05-23] MEDS: Mag Hydrox/Al Hydrox/Simeth 30 ML UDC PO PRN (12:59)
[2017-05-23] MEDS: Acetaminophen 325 MG TABLET PO PRN (20:48)
[2017-05-23] MEDS: Temazepam 15 MG CAPSULE PO PRN (20:49)
[2017-05-24] MEDS: *HR* LORazepam 1 MG TABLET PO SCH ×2 (09:56→21:14)
[2017-05-24] MEDS: Lithium Carbonate 300 MG CAPSULE PO SCH ×2 (09:56→21:13)
--- NOTE | 2017-05-24 11:03 | Psychiatry Progress Note ---
Date of Encounter: 05/24/17 Time of Encounter: 10:30 Subjective Interval history: Patient seen today , case d/w treatment team and as per team he has not much improved, somewhat better moods. As per patient i am ok, sleep was on and off and feeling tired now, voices are there and seeing things, sad and dysphoric. he has been depressed lately and as per him getting worse, suicidal thoughts are about the same.will give low dose of escitalopram , side effects explained to patient and his lithium level was 1.0 denies side effects from medication. Review of Systems Psychiatric: Reports: depression, anxiety, suicidal ideation, change in appetite , auditory hallucinations, visual hallucinations, difficulty concentrating, hopelessness, irritability, mood swings, panic attacks Objective: Exam Patient orientation: Yes Person, Yes Time, Yes Place Level of alertness: Alert Patient appearance: Appropriate Behavior: withdrawn Psychomotor activity: Slowed Eye contact: Minimal Contact Mood description: Depressed, Anxious Affect description: constricted Speech pattern: Slowed Speech volume: Soft/Quiet Thought process: Intact Thought content: Yes Suicidal ideation, Yes Preoccupation, Yes Paranoid delusion Perceptual disturbances: Yes Auditory hallucinations, Yes Visual hallucinations Judgment: Limited Insight: Partial Results - Vital Signs Vital Signs: Temp Pulse Resp BP Pulse Ox 97.8 F 70 16 105/76 98 05/24/17 09:00 05/24/17 09:00 05/24/17 09:00 05/24/17 09:00 05/22/17 18:32 - Drug Levels and Toxicology Drug Levels and Toxicology: Drug Levels and Toxicity 05/24/17 08:12 [place] 1.0 - Labs Labs: Laboratory Results - last 24 hr 05/24/17 08:12 [place] 1.0 Assessment and Plan (1) Suicidal ideation Current visit: Yes Status: Acute Risks, benefits, side effects, alternatives discussed w/pt: Yes Patient agreeable to treatment: Yes (2) Bipolar disorder Current visit: No Status: Acute Risks, benefits, side effects, alternatives discussed w/pt: Yes Patient agreeable to treatment: Yes Qualifiers: Active/Remission status: currently active Current bipolar episode type: depressed Current episode severity: severe Psychotic features: with psychotic features Qualified Code(s): F31.5 - Bipolar disorder, current episode depressed, severe, with psychotic features (3) Anxiety Current visit: No Status: Acute Risks, benefits, side effects, alternatives discussed w/pt: Yes Patient agreeable to treatment: Yes Consult Discharge Plan - Plan Referrals: [facility] [Outside] - 05/30/17 1:00 pm (The above appointment is with Debo Bowen, for mental health counseling services. You will also see Dr. Dawn, for outpatient psychiatric assessment and medication management services on 06/15/2017 at 8:40am. Please arrive 10 minutes early to all appointments to complete the check-in process. Please bring your insurance card (or [facility] award letter) and photo ID. If you are unable to keep this appointment, 24 hour business notice of cancellation is expected. The above appointment(s) reflects first availability. You may contact the office regularly to check for cancellations that may allow you to be seen sooner. ) Alan Tran MD [Partnered Physician] - 06/18/17 3:30 pm (The above appointment is with Alan Tran, for urology follow-up.)
[2017-05-24] MEDS: Temazepam 15 MG CAPSULE PO PRN (21:13)
[2017-05-25] MEDS: Lithium Carbonate 300 MG CAPSULE PO SCH ×2 (10:00→21:05)
[2017-05-25] MEDS: *HR* LORazepam 1 MG TABLET PO SCH ×2 (10:00→21:05)
[2017-05-25] MEDS: Acetaminophen 325 MG TABLET PO PRN (10:22)
--- NOTE | 2017-05-25 10:38 | Psychiatry Progress Note ---
Date of Encounter: 05/25/17 Time of Encounter: 10:25 Subjective Interval history: Patient seen today case d/w treatment team , patient not much improved still suicidal and depressed. As per him i am the same , i am depressed i did not get my medicine yesterday , for depression , i am still thinking about hurting my self, voices are better and has some visions. he denies side effects. patient started on lexapro , continued all his other meds. Review of Systems Psychiatric: Reports: depression, anxiety, suicidal ideation, change in appetite , auditory hallucinations, visual hallucinations, difficulty concentrating, hopelessness, irritability, mood swings, panic attacks Objective: Exam Patient orientation: Yes Person, Yes Time, Yes Place Level of alertness: Alert Patient appearance: Appropriate Behavior: cooperative, anxious Psychomotor activity: Slowed Eye contact: Minimal Contact Mood description: Angry, Depressed, Anxious Affect description: congruent with mood Speech pattern: Slowed Speech volume: Normal Thought process: Intact Thought content: Yes Suicidal ideation, Yes Preoccupation, Yes Paranoid delusion Perceptual disturbances: Yes Visual hallucinations Judgment: Limited Insight: Partial Results - Vital Signs Vital Signs: Temp Pulse Resp BP Pulse Ox 98.4 F 84 16 122/88 98 05/24/17 19:58 05/24/17 19:58 05/24/17 19:58 05/24/17 19:58 05/22/17 18:32 Assessment and Plan (1) Suicidal ideation Current visit: Yes Status: Acute Risks, benefits, side effects, alternatives discussed w/pt: Yes Patient agreeable to treatment: Yes (2) Bipolar disorder Current visit: No Status: Acute Risks, benefits, side effects, alternatives discussed w/pt: Yes Patient agreeable to treatment: Yes Qualifiers: Active/Remission status: currently active Current bipolar episode type: depressed Current episode severity: severe Psychotic features: with psychotic features Qualified Code(s): F31.5 - Bipolar disorder, current episode depressed, severe, with psychotic features (3) Anxiety Current visit: No Status: Acute Risks, benefits, side effects, alternatives discussed w/pt: Yes Patient agreeable to treatment: Yes Consult Discharge Plan - Plan Referrals: [facility] [Outside] - 05/30/17 1:00 pm (The above appointment is with Debo Bowen, for mental health counseling services. You will also see Dr. Dawn, for outpatient psychiatric assessment and medication management services on 06/15/2017 at 8:40am. Please arrive 10 minutes early to all appointments to complete the check-in process. Please bring your insurance card (or [facility]) and photo ID. If you are unable to keep this appointment, 24 hour business notice of cancellation is expected. The above appointment(s) reflects first availability. You may contact the office regularly to check for cancellations that may allow you to be seen sooner. ) Alan Tran MD [Partnered Physician] - 06/18/17 3:30 pm (The above appointment is with Alan Tran, for urology follow-up.)
[2017-05-25] MEDS: Temazepam 15 MG CAPSULE PO PRN (23:19)
--- NOTE | 2017-05-26 08:46 | Psychiatry Progress Note ---
Date of Encounter: 05/26/17 Time of Encounter: 08:30 Subjective Interval history: Patient seen , case d/w treatment team and as per team slow improvement, did attend groups. Patient states depression little better , still having suicidal thoughts and mood swings, sleep is getting better, appetite is good. denies side effects. psychosis still there. Review of Systems Psychiatric: Reports: depression, anxiety, suicidal ideation, change in appetite , auditory hallucinations, visual hallucinations, difficulty concentrating, hopelessness, irritability, mood swings, panic attacks Objective: Exam Patient orientation: Yes Person, Yes Time, Yes Place Level of alertness: Alert Patient appearance: Appropriate Behavior: cooperative, withdrawn Psychomotor activity: Slowed Eye contact: Maintains Eye Contact Mood description: Depressed, Anxious Affect description: constricted Speech pattern: Slowed Speech volume: Normal Thought process: Intact Thought content: Yes Suicidal ideation, Yes Paranoid delusion Judgment: Limited Insight: Partial Results - Vital Signs Vital Signs: Temp Pulse Resp BP Pulse Ox 98.2 F 53 16 116/84 98 05/25/17 19:36 05/25/17 19:36 05/25/17 19:36 05/25/17 19:36 05/22/17 18:32 Assessment and Plan (1) Suicidal ideation Current visit: Yes Status: Acute Risks, benefits, side effects, alternatives discussed w/pt: Yes Patient agreeable to treatment: Yes (2) Bipolar disorder Current visit: No Status: Acute Risks, benefits, side effects, alternatives discussed w/pt: Yes Patient agreeable to treatment: Yes Qualifiers: Active/Remission status: currently active Current bipolar episode type: depressed Current episode severity: severe Psychotic features: with psychotic features Qualified Code(s): F31.5 - Bipolar disorder, current episode depressed, severe, with psychotic features (3) Anxiety Current visit: No Status: Acute Risks, benefits, side effects, alternatives discussed w/pt: Yes Patient agreeable to treatment: Yes Consult Discharge Plan - Plan Referrals: [facility] [Outside] - 05/30/17 1:00 pm (The above appointment is with Deob Bowen, for mental health counseling services. You will also see Dr. Dawn, for outpatient psychiatric assessment and medication management services on 06/15/2017 at 8:40am. Please arrive 10 minutes early to all appointments to complete the check-in process. Please bring your insurance card (or [facility] award letter) and photo ID. If you are unable to keep this appointment, 24 hour business notice of cancellation is expected. The above appointment(s) reflects first availability. You may contact the office regularly to check for cancellations that may allow you to be seen sooner. ) Alan Tran MD [Partnered Physician] - 06/18/17 3:30 pm (The above appointment is with Alan Tran, for urology follow-up.)
[2017-05-26] MEDS: *HR* LORazepam 1 MG TABLET PO SCH ×2 (09:30→20:33)
[2017-05-26] MEDS: Lithium Carbonate 300 MG CAPSULE PO SCH ×2 (09:31→20:33)
[2017-05-26] MEDS: Temazepam 15 MG CAPSULE PO PRN (23:43)
[2017-05-27] MEDS: Lithium Carbonate 300 MG CAPSULE PO SCH ×2 (09:00→20:47)
[2017-05-27] MEDS: *HR* LORazepam 1 MG TABLET PO SCH ×2 (09:00→20:46)
--- NOTE | 2017-05-27 12:48 | Psychiatry Progress Note ---
Date of Encounter: 05/27/17 Time of Encounter: 11:30 Subjective Interval history: Patient seen today , case d/w treatment team . States i have been very anxious and did not sleep well as he did , paranoia is up today and suicidal thoughts are still there. denies side effects. Review of Systems Psychiatric: Reports: depression, anxiety, suicidal ideation, change in appetite , auditory hallucinations, visual hallucinations, difficulty concentrating, hopelessness, irritability, mood swings, panic attacks Objective: Exam Patient orientation: Yes Person, Yes Time, Yes Place Level of alertness: Alert Patient appearance: Appropriate Behavior: anxious Psychomotor activity: Normal Eye contact: Maintains Eye Contact Mood description: Depressed, Anxious Affect description: congruent with mood Speech pattern: Slowed Speech volume: Normal Thought process: Intact Thought content: Yes Suicidal ideation, Yes Paranoid delusion Perceptual disturbances: Yes Auditory hallucinations Judgment: Limited Insight: Partial Results - Vital Signs Vital Signs: Temp Pulse Resp BP Pulse Ox 97.8 F 81 18 123/85 98 05/27/17 09:00 05/27/17 09:00 05/27/17 09:00 05/27/17 09:00 05/22/17 18:32 Assessment and Plan (1) Suicidal ideation Current visit: Yes Status: Acute Risks, benefits, side effects, alternatives discussed w/pt: Yes Patient agreeable to treatment: Yes (2) Bipolar disorder Current visit: No Status: Acute Risks, benefits, side effects, alternatives discussed w/pt: Yes Patient agreeable to treatment: Yes Qualifiers: Active/Remission status: currently active Current bipolar episode type: depressed Current episode severity: severe Psychotic features: with psychotic features Qualified Code(s): F31.5 - Bipolar disorder, current episode depressed, severe, with psychotic features (3) Anxiety Current visit: No Status: Acute Risks, benefits, side effects, alternatives discussed w/pt: Yes Patient agreeable to treatment: Yes Consult Discharge Plan - Plan Referrals: [facility] [Outside] - 05/30/17 1:00 pm (The above appointment is with Debo Bowen, for mental health counseling services. You will also see Dr. Dawn, for outpatient psychiatric assessment and medication management services on 06/15/2017 at 8:40am. Please arrive 10 minutes early to all appointments to complete the check-in process. Please bring your insurance card (or [facility]) and photo ID. If you are unable to keep this appointment, 24 hour business notice of cancellation is expected. The above appointment(s) reflects first availability. You may contact the office regularly to check for cancellations that may allow you to be seen sooner. ) Alan Tran MD [Partnered Physician] - 06/18/17 3:30 pm (The above appointment is with Alan Tran, for urology follow-up.)
[2017-05-27] MEDS: Mag Hydrox/Al Hydrox/Simeth 30 ML UDC PO PRN (13:01)
[2017-05-28] MEDS: Temazepam 15 MG CAPSULE PO PRN (01:49)
[2017-05-28] MEDS: Lithium Carbonate 300 MG CAPSULE PO SCH ×2 (08:41→21:27)
[2017-05-28] MEDS: *HR* LORazepam 1 MG TABLET PO SCH ×2 (08:41→21:28)
--- NOTE | 2017-05-28 11:02 | Psychiatry Progress Note ---
Date of Encounter: 05/28/17 Time of Encounter: 10:56 Subjective Interval history: Client admitted for SI. Endorses vague symptoms of seeing dark figures and hearing snapping sounds. Claims SI still there. Feels "fifty fifty" today. Has been here for several days. Does not look particularly motivated. Seems to like being in the hospital. Claims he lives with a friend and can return there. Not in a alford to get out though. Does nothing during the day. Reports he does not work. Sees Dr. Dawn on an outpatient basis. States his diagnosis is Bipolar Disorder. Denies any physical health problems. Denies substances of abuse. Staff report he is a regular on the inpatient unit. When asked what needs to get better he responded with "my depression." Started on Lexapro. Will maximize dose today as he is tolerating medication without issue. Already prescribed high dose [place] and Seroquel. Review of Systems Constitutional: Denies: fever, chills, weakness, weight change Eyes: Denies: eye pain, vision change Ears, Nose, Throat: Denies: ear pain, throat pain, dental pain, hearing loss, congestion Cardiovascular: Denies: chest pain, palpitations, dyspnea on exertion Respiratory: Denies: cough, dyspnea, wheezes Gastrointestinal: Denies: abdominal pain, nausea, vomiting, diarrhea, constipation Musculoskeletal: Denies: joint swelling, joint pain Neurological: Denies: headache, weakness, numbness, memory loss Psychiatric: Reports: depression, anxiety, suicidal ideation, change in appetite , auditory hallucinations, visual hallucinations, difficulty concentrating, hopelessness, irritability, mood swings, panic attacks Objective: Exam Patient orientation: Yes Person, Yes Time, Yes Place Level of alertness: Alert Patient appearance: Appropriate Behavior: calm, cooperative Psychomotor activity: Normal Eye contact: Maintains Eye Contact Mood description: Depressed Affect description: congruent with mood Speech pattern: Normal rate, Normal rhythm, Normal tone Speech volume: Soft/Quiet Thought process: Linear Thought content: Yes Suicidal ideation, No Homicidal ideation, No Overt delusions Perceptual disturbances: Yes Auditory hallucinations, Yes Visual hallucinations Judgment: Limited Insight: Minimal Results - Vital Signs Vital Signs: Temp Pulse Resp BP Pulse Ox 97.8 F 80 18 122/87 98 05/28/17 09:00 05/28/17 09:00 05/28/17 09:00 05/28/17 09:00 05/22/17 18:32 Assessment and Plan (1) Bipolar disorder Current visit: No Status: Acute Plan: Continue hospitalization, Close observation, Suicide Precautions per unit protocol, Encourage participation in unit milieu, Group Therapy, Monitor sleep, Monitor appetite Risks, benefits, side effects, alternatives discussed w/pt: Yes Patient agreeable to treatment: Yes Qualifiers: Active/Remission status: currently active Current bipolar episode type: depressed Current episode severity: severe Psychotic features: with psychotic features Qualified Code(s): F31.5 - Bipolar disorder, current episode depressed, severe, with psychotic features Consult Discharge Plan - Plan Referrals: [facility] [Outside] - 05/30/17 1:00 pm (The above appointment is with Debo Bowen, for mental health counseling services. You will also see Dr. Dawn, for outpatient psychiatric assessment and medication management services on 06/15/2017 at 8:40am. Please arrive 10 minutes early to all appointments to complete the check-in process. Please bring your insurance card (or [facility]) and photo ID. If you are unable to keep this appointment, 24 hour business notice of cancellation is expected. The above appointment(s) reflects first availability. You may contact the office regularly to check for cancellations that may allow you to be seen sooner. ) Alan Tran MD [Partnered Physician] - 06/18/17 3:30 pm (The above appointment is with Alan Tran, for urology follow-up.)
[2017-05-28] MEDS: Acetaminophen 325 MG TABLET PO PRN (12:50)
[2017-05-28] MEDS: hydrOXYzine pamoate 25 MG CAPSULE PO PRN (19:19)
[2017-05-29 09:14] VITALS: BP 114/81
[2017-05-29] MEDS: Lithium Carbonate 300 MG CAPSULE PO SCH (09:37)
[2017-05-29] MEDS: *HR* LORazepam 1 MG TABLET PO SCH (09:37)
--- NOTE | 2017-05-29 12:58 | Discharge Summary ---
Date of Encounter: 05/29/17 Time of Encounter: 12:50 Diagnosis - Discharge Diagnosis (1) Bipolar disorder Status: Acute Qualifiers: Active/Remission status: currently active Current bipolar episode type: depressed Current episode severity: severe Psychotic features: with psychotic features Qualified Code(s): F31.5 - Bipolar disorder, current episode depressed, severe, with psychotic features Medications - Discharge Medications Prescriptions: Allopurinol [Zyloprim 300 MG] 300 mg PO DAILY #21 tablet Benztropine [Cogentin] 1 mg PO BID #42 tablet Escitalopram [Lexapro] 20 mg PO DAILY #21 tablet [place] Carbonate 300 mg PO QAM #21 capsule [place] Carbonate 600 mg PO HS #42 capsule LORazepam [Ativan] 1 mg PO BID #42 tablet Quetiapine Fumarate [Seroquel] 800 mg PO HS #42 tablet Temazepam [Restoril] 30 mg PO HS PRN 05/22/16 [History] Allopurinol [Zyloprim 300 MG] 300 mg PO DAILY #21 tablet 05/29/17 [Rx] Benztropine [Cogentin] 1 mg PO BID #42 tablet 05/29/17 [Rx] Escitalopram [Lexapro] 20 mg PO DAILY #21 tablet 05/29/17 [Rx] LORazepam [Ativan] 1 mg PO BID #42 tablet 05/29/17 [Rx] [place] Carbonate 300 mg PO QAM #21 capsule 05/29/17 [Rx] [place] Carbonate 600 mg PO HS #42 capsule 05/29/17 [Rx] Patient Taking Own Medication 10 each PO Q4H PRN each 05/29/17 [Rx] Quetiapine Fumarate [Seroquel] 800 mg PO HS #42 tablet 05/29/17 [Rx] 3 Allergy/AdvReac Type Severity Reaction Status Date / Time olanzapine [From Zyprexa] Allergy Anaphylaxis Verified 05/23/17 14:54 Results Procedures and tests throughout hospitalization: Completed Lab Orders Category Date Time Status [place] AM 0400 Lab 05/24/17 08:12 Completed Provider Date of admission: 05/22/17 18:41 Primary care physician: PCP NONE Discharging clinician: Liz Morton Assessment and Plan - Patient/Caregiver Discharge Instructions Activity: resume usual activities as tolerated Diet: regular diet - Follow up Plan Follow up with: [facility] [Outside] - 05/30/17 1:00 pm (The above appointment is with Debo Bowen, for mental health counseling services. You will also see Dr. Dawn, for outpatient psychiatric assessment and medication management services on 06/15/2017 at 8:40am. Please arrive 10 minutes early to all appointments to complete the check-in process. Please bring your insurance card (or [facility] award letter) and photo ID. If you are unable to keep this appointment, 24 hour business notice of cancellation is expected. The above appointment(s) reflects first availability. You may contact the office regularly to check for cancellations that may allow you to be seen sooner. ) Alan Tran MD [Partnered Physician] - 06/18/17 3:30 pm (The above appointment is with Alan Tran, for urology follow-up.) Disposition: Home, Self-Care Hospital Course Hospital course: Mr. Larsen is a 41 year old male who was admitted secondary to SI. He was continued on his home medications with the addition of Lexapro. This SSRI was started with good clinical effect and it was titrated up over the course of his inpatient stay. Client continued to endorse SI off and on throughout his stay but denied any real intent or plan. Staff were able to contact a female friend of his who agreed Daniel could stay with her at the time of discharge and that she would manage his medications. Daniel was scheduled with a counseling appointment within twenty four hours of his discharge. On the day of discharge he was smiling and bright with this senior medical writer. He denied having any concerns about his discharge plan and seemed excited about having a therapy appointment so soon after returning home. - Time Spent with Patient Total time spent providing and/or coordinating discharge services: Quality - Multiple Antipsychotics Patient discharged on 2 or more antipsychotic medications: No Procedures - Procedures Procedures: Medication Management, Crisis Stabilization, Supportive Therapy, Group Therapy Mental Status Exam - Mental Status Exam Patient orientation: Yes Person, Yes Time, Yes Place Level of alertness: Alert Patient appearance: Appropriate Behavior: calm, cooperative Psychomotor activity: Normal Eye contact: Maintains Eye Contact Mood description: Euthymic/stable Affect description: congruent with mood, full range Speech pattern: Normal rate, Normal rhythm, Normal tone Speech Volume: Normal Thought process: Linear, Goal Oriented Thought Content: No Suicidal ideation, No Homicidal ideation, No Overt delusions Perceptual Disturbances: No Auditory hallucinations, No Visual hallucinations Judgment: Limited Insight: Partial
== END 2017-05-29 14:25 | disposition home or self-care (01) | DRG 885 ==
LOC: EMEROO 16:17 → 1ANU 18:41
PROVIDERS: ADMIT Psychiatry & Neurology Psychiatry; ATTEND Psychiatry & Neurology Psychiatry